=== PATIENT | male | born 2000 ===

== ENCOUNTER 2021-12-08 22:03 | Emergency (ER) | payer SELFPAY ==
[2021-12-08 22:23] VITALS: BP 138/80
--- NOTE | 2021-12-09 10:13 | Electrocardiograph Report ---
[facility] Test Date: 2021-12-08 Test Time: 22:26:23 Pat Name: RICKEY CONRAD Department: Room: Gender: M Domestic Maid: RADHA : 2000 Requested By: ED DOC Order Number: [id number] Reading MD: Raúl Lee Measurements Intervals [place] Rate: 102 P: 72 AK: 128 QRS: 66 QRSD: 87 T: 66 QT: 353 QTc: 460 Interpretive Statements Sinus tachycardia Biatrial enlargement ST elev, probable normal early repol pattern No previous ECG available for comparison Electronically Signed On 12-09-2021 10:13:00 EDT by Raúl Lee
== END 2021-12-09 16:12 | disposition left against medical advice (07) ==
LOC: ED 22:03
DX: R07.9 Chest pain, unspecified (principal); Z53.21 Procedure and treatment not carried out due to patient leaving prior to being seen by health care provider
CPT/HCPCS: 93005